=== PATIENT | female | born 1950 | race Caucasian/White ===

== ENCOUNTER → 2018-02-22 09:35 | Outpatient (CLI) | payer MEDICARE, OTHER, SELFPAY ==
--- NOTE | 2018-02-22 | DI.US.S_ITS ---
PROCEDURE: US PELVIC COMPLETE INDICATIONS: DYSFUNCTIONAL UTERINE BLEEDING TECHNIQUE: Real-time scanning was performed of the pelvic organs, with image documentation. Additional endovaginal scanning was necessary due to incomplete visualization of the adnexal and endometrial structures by transabdominal scanning. COMPARISON: None. FINDINGS: Transabdominal scanning: Limited scanning through the kidneys shows no hydronephrosis. No pathologic free abdominal or pelvic fluid. Endovaginal scanning: Uterus: Uterus is normal in size at 5.2 x 2.2 x 4.7 cm. The endometrium measures 1.2 mm in combined thickness. Ovaries: Ovaries not visualized. No adnexal masses seen. IMPRESSION: Normal appearance of the endometrial complex and the ovaries are not visualized. Dictated by: Mono Churchill A Interpreted: Isa Olsen MD on 02/22/2018 at 10:54 Approved by: Isa Olsen MD, PhD on 02/22/2018 at 10:59
== END ==
PROVIDERS: PCP Family Medicine; Visit Provider Family Medicine
DX: N93.8 Other specified abnormal uterine and vaginal bleeding (principal)
CPT/HCPCS: 76830; 76856

== ENCOUNTER → 2019-01-10 10:46 | Outpatient (CLI) | payer MEDICARE, OTHER, SELFPAY ==
--- NOTE | 2019-01-10 10:52 | DI.CT.S_ITS ---
PROCEDURE: CT SINUS SCREEN WO CON INDICATIONS: tinnitus TECHNIQUE: Noncontrast 3.0 mm axial images acquired from the frontal sinuses to the mid-sella, with coronal and sagittal reformats. For radiation dose reduction, the following was used: automated exposure control, adjustment of mA and/or kV according to patient size. COMPARISON: [facility], CT, HEAD WITHOUT CONTRAST, 05/09/2017, 12:53. FINDINGS: Image quality: Excellent. Maxillary Sinuses: No bony remodeling or destruction. Sinuses are clear. Ethmoid Air Cells: No bony remodeling or destruction. Sinuses are clear. Sphenoid Sinuses: No bony remodeling or destruction. Sinuses are clear. Frontal Sinuses: No bony remodeling or destruction. Sinuses are clear. Ostiomeatal Complexes: Ostiomeatal complexes are patent, yet they are constitutionally narrowed with infraorbital air cell septations. Miscellaneous: Visualized intra-orbital contents are normal. 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 Mild rightward nasal septal deviation is seen. IMPRESSION: No imaging explanation is found for this patient's presenting symptoms. No significant active paranasal sinus disease is seen. Dictated by: Wero Tamayo M.D. on 01/10/2019 at 10:50 Approved by: Wero Tamayo M.D. on 01/10/2019 at 10:51
== END ==
PROVIDERS: PCP Family Medicine; Visit Provider Family Medicine
DX: H93.11 Tinnitus, right ear (principal); J34.2 Deviated nasal septum; J34.3 Hypertrophy of nasal turbinates
CPT/HCPCS: 70486